=== PATIENT | male | born 1965 | race Caucasian/White ===

== ENCOUNTER 2019-09-28 09:46 | Outpatient (CLI) | payer BC, SELFPAY | END 2019-09-28 09:47 | disposition home or self-care (01) | LOC: ANHBWCAUD 09:47 | PROVIDERS: PCP Family Medicine; Visit Provider Otolaryngology | DX: H90.42 Sensorineural hearing loss, unilateral, left ear, with unrestricted hearing on the contralateral side (principal); H90.11 Conductive hearing loss, unilateral, right ear, with unrestricted hearing on the contralateral side | CPT/HCPCS: 92557; 92567 ==

== ENCOUNTER 2020-03-25 00:59 | Outpatient (CLI) | payer BC, SELFPAY ==
[2020-03-25 18:11] LABS: SARS-CoV-2 RNA PCR Negative
== END 2020-03-25 01:00 | disposition home or self-care (01) ==
LOC: ANHCOVIDDT 00:59
PROVIDERS: PCP Family Medicine; Visit Provider Internal Medicine Gastroenterology
DX: Z01.812 Encounter for preprocedural laboratory examination (principal); Z20.828 Contact with and (suspected) exposure to other viral communicable diseases
CPT/HCPCS: 87635; C9803; U0003

== ENCOUNTER 2020-03-27 03:03 | Day surgery (SDC) | payer BC, SELFPAY ==
[2020-03-20 12:42] VITALS: BMI 29.5
--- NOTE | 2020-03-27 08:22 | WPDANESEPPF ---
Anes - Initial Pre Proc Eval Procedure: Operation Date: 03/27/20 10:30 Proposed Procedures p Screening Colonoscopy - Velasquez Macias MD Date/Time: 03/27/20 08:22 Surgeon: Velasquez Macias MD Pre Op Diagnosis: Hx Of Polyps Patient Data Age: 54 Gender: M Height: 1.75 m Weight: 90.9 kg Allergies Allergy/AdvReac Type Severity Reaction Status Date / Time bupropion Allergy Mild HIVES Verified 03/27/20 10:22 Home Medications Medication Instructions Recorded Confirmed Type aspirin 81 mg tablet,delayed 81 mg PO DAILY #30 tablet 04/21/19 03/21/20 Rx release famotidine 20 mg tablet 20 mg PO DAILY #20 tablet 04/21/19 03/21/20 Rx multivitamin 1 tablet PO DAILY #30 tablet 04/21/19 03/21/20 Rx omega-3 fatty acids 1,000 mg 1,000 mg PO BID #60 cap 04/21/19 03/21/20 Rx capsule carvedilol 25 mg tablet 25 mg PO Q12H #180 tablet 06/05/19 03/21/20 Rx rosuvastatin 40 mg tablet 40 mg PO DAILY #90 tablet 07/26/19 03/21/20 Rx warfarin 3 mg tablet 3 mg PO QTUTHSASU #90 tablet 03/07/20 03/21/20 Rx warfarin 4 mg tablet 4 mg PO QMWF #90 tablet 03/07/20 03/21/20 Rx fenofibrate nanocrystallized 145 145 mg PO DAILY #90 tablet 03/19/20 03/21/20 Rx mg tablet Patient hx anesthesia problems: none Family hx anesthesia problems: none PMFSH Past Medical History Medical History Cardiomyopathy Cholesteatoma Hyperlipidemia Hypertension HETAL on CPAP Pulmonary emboli Right leg DVT Surgical History Surgical History No pertinent past surgical history Family History Family History Father Diabetes mellitus Family history of hypercholesterolemia Hypertension Family history of coronary artery disease Mother Family history of hypercholesterolemia Hypertension Cerebrovascular accident Sibling Family history of hypercholesterolemia Hypertension Social History Social History Smoking packs per day: 0.5 Smoking cigarettes per day: 10.0 Years smoked: 18 Smoking pack-years: 9.00 Smoking status: Former smoker Tobacco type: cigarettes Second hand tobacco smoke exposure: No Alcohol intake: current Drinks per week: 5 Substance use: never Substance use type: does not use Living arrangements: with family Spiritual care concerns: No Anes - Eval Final PreProcedure Day of Procedure 03/27/20 08:22 Patient weight: overweight Heart: regular rate and rhythm Lungs: clear to auscultation and normal air movement Airway: Mallampati scale class II Neurological: alert and oriented Last oral intake: >/= 8 hours ASA classification: III Emergent: no Anesthetic plan: proceed Anesthesia type and monitoring: general GIVS and standard monitoring Informed Consent: The patient's anesthetic plan and its attendant risks and benefits were discussed with the patient/family/POA. Questions were solicited and answers provided to the satisfaction of the patient/family/POA.
--- NOTE | 2020-03-27 10:18 | P.HP_ITS ---
History of Present Illness History of Present Illness Consent: Risks, benefits, and alternatives have been discussed and questions answered. Patient agrees to proceed with procedure. Chief complaint: Hx Of Polyps Narrative: Hunter Hallman is a 54 year old male here for screening colonoscopy [facility] Past Medical History Medical History Cardiomyopathy Cholesteatoma Hyperlipidemia Hypertension HETAL on CPAP Pulmonary emboli Right leg DVT Surgical History Surgical History No pertinent past surgical history Family History Family History Father Diabetes mellitus Family history of hypercholesterolemia Hypertension Family history of coronary artery disease Mother Family history of hypercholesterolemia Hypertension Cerebrovascular accident Sibling Family history of hypercholesterolemia Hypertension Social History Social History Smoking packs per day: 0.5 Smoking cigarettes per day: 10.0 Years smoked: 18 Smoking pack-years: 9.00 Smoking status: Former smoker Tobacco type: cigarettes Second hand tobacco smoke exposure: No Alcohol intake: current Drinks per week: 5 Substance use: never Substance use type: does not use Living arrangements: with family Spiritual care concerns: No Meds Home Medications and Allergies Home Medications Medication Instructions Recorded Confirmed Type aspirin 81 mg tablet,delayed 81 mg PO DAILY #30 tablet 04/21/19 03/21/20 Rx release famotidine 20 mg tablet 20 mg PO DAILY #20 tablet 04/21/19 03/21/20 Rx multivitamin 1 tablet PO DAILY #30 tablet 04/21/19 03/21/20 Rx omega-3 fatty acids 1,000 mg 1,000 mg PO BID #60 cap 04/21/19 03/21/20 Rx capsule carvedilol 25 mg tablet 25 mg PO Q12H #180 tablet 06/05/19 03/21/20 Rx rosuvastatin 40 mg tablet 40 mg PO DAILY #90 tablet 07/26/19 03/21/20 Rx warfarin 3 mg tablet 3 mg PO QTUTHSASU #90 tablet 03/07/20 03/21/20 Rx warfarin 4 mg tablet 4 mg PO QMWF #90 tablet 03/07/20 03/21/20 Rx fenofibrate nanocrystallized 145 145 mg PO DAILY #90 tablet 03/19/20 03/21/20 Rx mg tablet Allergies Allergy/AdvReac Type Severity Reaction Status Date / Time bupropion Allergy Mild HIVES Verified 03/21/20 15:59 Exam Resp: Auscultation: clear to auscultation bilaterally Cardio: Rate: regular rate Rhythm: regular rhythm GI: GI Palp: Yes Soft to palpation and No Tenderness to palpation present (GI) Assessment and Plan Assessment and plan (1) Colon cancer screening: Code(s): Z12.11 - Encounter for screening for malignant neoplasm of colon Status: Acute Assessment and Plan: Colonoscopy with possible biopsy or polypectomy or cautery or injection of substances.
[2020-03-27 10:24] VITALS: BP 133/87; PULSE 70; RESP 16; TEMP 36.2; O2SAT 100; BMI 29.4
[2020-03-27] MEDS: LACTATED RINGERS 1,000 ML 150 ML IV CONT (10:45)
[2020-03-27 11:10] VITALS: BP 110/62; PULSE 67; RESP 20; O2SAT 98
[2020-03-27 11:20] VITALS: BP 120/81; PULSE 71; RESP 26; O2SAT 100
[2020-03-27 11:30] VITALS: BP 123/80; PULSE 66; RESP 19; O2SAT 98
== END 2020-03-27 12:05 | disposition home or self-care (01) ==
PROVIDERS: PCP Family Medicine; Visit Provider Internal Medicine Gastroenterology
PROC: 0DJD8ZZ Inspection of Lower Intestinal Tract, Via Natural or Artificial Opening Endoscopic (ICD-10-PCS; CPT 45378; principal; 2020-03-27 10:30)
DX: Z12.11 Encounter for screening for malignant neoplasm of colon (principal); K63.5 Polyp of colon; I10 Essential (primary) hypertension; E78.5 Hyperlipidemia, unspecified; G47.33 Obstructive sleep apnea (adult) (pediatric); I42.9 Cardiomyopathy, unspecified; Z86.711 Personal history of pulmonary embolism; Z86.718 Personal history of other venous thrombosis and embolism; Z79.01 Long term (current) use of anticoagulants; Z87.891 Personal history of nicotine dependence; Z79.82 Long term (current) use of aspirin
CPT/HCPCS: 45380; 88305; J2704; J7120

== ENCOUNTER 2020-07-19 10:26 | Outpatient (CLI) | payer BC, SELFPAY ==
--- NOTE | 2020-07-19 10:28 | ECG_ITS ---
Measurements Intervals [place] Rate: 72 P: 39 VA: 198 QRS: -19 QRSD: 96 T: 94 QT: 388 QTc: 427 Interpretive Statements SINUS RHYTHM VOLTAGE CRITERIA FOR LVH POOR R WAVE PROGRESSION, ANTERIOR LEADS BORDERLINE T WAVE ABNORMALITY- HIGH LATERAL LEADS BASELINE ARTIFACT- I, II, III, AVR, AVL, AVF BORDERLINE ECG Electronically Signed On 07-19-2020 11:32:21 CUSTOMS IMPORT SPECIALIST by Josesito Rob D.O.
[2020-07-19 11:09] LABS: INR 2.7; Partial Thromboplastin Time 37.1 SECONDS (22.3-36.8); Prothrombin Time 28.8 Seconds (11.1-14.7)
== END 2020-07-19 10:27 | disposition home or self-care (01) ==
PROVIDERS: Anesthesiology; PCP Family Medicine; Visit Provider Orthopaedic Surgery
DX: E78.5 Hyperlipidemia, unspecified (principal); I10 Essential (primary) hypertension; I42.9 Cardiomyopathy, unspecified; Z79.01 Long term (current) use of anticoagulants; Z01.818 Encounter for other preprocedural examination; R94.31 Abnormal electrocardiogram [ECG] [EKG]
CPT/HCPCS: 36415; 85610; 85730; 93005

== ENCOUNTER 2020-07-20 01:18 | Outpatient (CLI) | payer BC, SELFPAY ==
[2020-07-20 18:46] LABS: SARS-CoV-2 RNA PCR Negative
== END 2020-07-20 01:19 | disposition home or self-care (01) ==
LOC: ANHCOVIDDT 01:19
PROVIDERS: PCP Family Medicine; Visit Provider Orthopaedic Surgery
DX: Z01.812 Encounter for preprocedural laboratory examination (principal); Z20.822 Contact with and (suspected) exposure to COVID-19
CPT/HCPCS: C9803; U0003; U0005

== ENCOUNTER 2020-07-23 01:41 | Day surgery (SDC) | payer BC, SELFPAY ==
[2020-07-17 15:25] VITALS: BMI 31.1
--- NOTE | 2020-07-22 14:41 | WPDANESEPPF ---
Anes - Initial Pre Proc Eval Procedure: Operation Date: 07/23/20 11:30 Proposed Procedures p Arthroscopic Subacromial Decompression, Right Shoulder - Ervin Gudino MD Date/Time: 07/22/20 14:41 Surgeon: Ervin Gudino MD Pre Op Diagnosis: Tendinopathy Right Shoulder, Impingement Syndrome Patient Data Age: 54 Gender: M Height: 1.75 m Weight: 95.5 kg Allergies Allergy/AdvReac Type Severity Reaction Status Date / Time bupropion Allergy Mild HIVES Verified 07/23/20 10:38 Home Medications Medication Instructions Recorded Confirmed Type aspirin 81 mg tablet,delayed 81 mg PO DAILY #30 tablet 04/21/19 07/23/20 Rx release famotidine 20 mg tablet 20 mg PO DAILY #20 tablet 04/21/19 07/23/20 Rx multivitamin 1 tablet PO DAILY #30 tablet 04/21/19 07/23/20 Rx omega-3 fatty acids 1,000 mg 1,000 mg PO BID #60 cap 04/21/19 07/23/20 Rx capsule fenofibrate nanocrystallized 145 145 mg PO DAILY #90 tablet 03/19/20 07/23/20 Rx mg tablet carvedilol 25 mg tablet 25 mg PO Q12H #180 tablet 06/03/20 07/23/20 Rx rosuvastatin 40 mg tablet 40 mg PO DAILY #90 tablet 07/16/20 07/23/20 Rx warfarin 3 mg tablet 3 mg PO 3XW #90 tablet 07/16/20 07/23/20 Rx warfarin 4 mg tablet 4 mg PO 4XW #90 tablet 07/16/20 07/23/20 Rx ECG: Date of Service: 07/19/20 Procedure(s): CA 12 lead EKG Accession Number(s): [id number] cc: ~ Measurements Intervals [place] Rate: 72 P: 39 KS: 198 QRS: -19 QRSD: 96 T: 94 QT: 388 QTc: 427 Interpretive Statements SINUS RHYTHM VOLTAGE CRITERIA FOR LVH POOR R WAVE PROGRESSION, ANTERIOR LEADS BORDERLINE T WAVE ABNORMALITY- HIGH LATERAL LEADS BASELINE ARTIFACT- I, II, III, AVR, AVL, AVF BORDERLINE ECG Electronically Signed On 07-19-2020 11:32:21 BAGMAN/WOMAN by Josesito Rob D.O. Dictated By: Josesito Rob DO 07/19/20 1132 Patient hx anesthesia problems: none Family hx anesthesia problems: none PMFSH Past Medical History Medical History Cardiomyopathy (~07/29/07) Cholesteatoma Close exposure to COVID-19 virus Hematuria History of pulmonary embolism Hyperlipidemia Hypertension HETAL on CPAP Pulmonary emboli Right leg DVT Surgical History Surgical History History of carpal tunnel release (~10/30/08) History of ear surgery (~1994) No pertinent past surgical history Family History Family History Father Diabetes mellitus Family history of hypercholesterolemia Hypertension Family history of coronary artery disease Mother Family history of hypercholesterolemia Hypertension Cerebrovascular accident Sibling Family history of hypercholesterolemia Hypertension Social History Social History Smoking packs per day: 0.5 Smoking cigarettes per day: 10.0 Years smoked: 15 Smoking pack-years: 7.50 Smoking status: Current every day smoker Tobacco type: cigarettes Second hand tobacco smoke exposure: No Alcohol intake: current Drinks per week: 5 Substance use: never Substance use type: does not use Living arrangements: with family Spiritual care concerns: No Anes - Eval Final PreProcedure Day of Procedure 07/22/20 14:41 Patient weight: obese Heart: regular rate and rhythm Lungs: clear to auscultation and normal air movement Airway: Mallampati scale class II Neurological: alert and oriented Last oral intake: >/= 8 hours ASA classification: III Emergent: no Anesthetic plan: proceed Anesthesia type and monitoring: general ETT Informed Cons
--- NOTE | 2020-07-22 14:46 | WPDANESPNB ---
Anes - Peripheral Nerve Block Date/Time: 07/22/20 14:46 I have discussed with the patient/family/POA the placement of a peripheral nerve block for post-operative pain management, including associated risks, benefits, complications, and side effects. Alternative methods of post-operative analgesia were detailed. Questions were solicited and answers provided to the satisfaction of the patient/family/POA. Time-Out: A pre-procedural Time-Out was completed immediately before starting the procedure and confirmed: Patient Identification, Site, Procedure, Patient Position and the Availability of Requisite Equipment. Clinical Indications: Acute post-operative pain management requested by the operative surgeon. Nerve Block Insertion Note Anes-nerve block: supraclavicular right Patient position: supine Skin prep: chlorhexidine Needle: 22 gauge, stimulating, insulated echogenic needle. Needle length: 80 mm Technique: ultrasound (in plane) Injectate: bupivacaine 0.5% with epi 5 mcg/ml (20cc) Observations: tolerated well Complications: none Procedure start time:: 1100 Procedure end time:: 1105
[2020-07-23] VITALS (7 sets, daily range): BP systolic 118–133; BP diastolic 71–79; PULSE 55–74; RESP 16–20; TEMP 36.1–36.6; O2SAT 97–100
--- NOTE | 2020-07-23 08:57 | WPDHPUPDATE1 ---
History and Physical Update Update Date/Time: 07/23/20 08:57 History and Physical has been reviewed, including an updated exam of the patient. There are NO changes in the patient's condition. Risks, benefits, and alternatives have been discussed and questions answered. Patient agrees to proceed with procedure.
[2020-07-23] MEDS: ACETAMINOPHEN 500 MG TABLET 1000 MG PO (09:41)
[2020-07-23] MEDS: KETOROLAC 15 MG/ML VIAL (*BKC) IV PUSH (10:13)
[2020-07-23] MEDS: LACTATED RINGERS 1,000 ML 30 ML IV CONT ×2 (10:13→13:03)
[2020-07-23 11:00] LABS: Prothrombin Time 14.2 Seconds (11.1-14.7)
[2020-07-23 11:03] LABS: Partial Thromboplastin Time 24.7 SECONDS (22.3-36.8)
[2020-07-23] MEDS: ceFAZolin 2 GM/D5W 50 ML 2 GM/50 ML BAG IVPB (11:17)
--- NOTE | 2020-07-23 12:56 | PM.PROC ---
Procedure Note - Detailed Date of procedure: 07/23/20 Pre-op diagnosis: Tendinopathy Right Shoulder, Impingement Syndrome Post-op diagnosis: other (1. Impingement syndrome shoulder 2. SLAP tear type 2) Procedure performed: 1. Arthrosocopic biceps tenodesis with labral debridement. 2. Arthroscopic subacromial decompression. Description of procedure: The superior labrum and biceps anchor showed extensive degenerative tearing. The biceps was significantly unstable. There was moderate degenerative tearing of the posterior superior labrum and anterior labrum as well. Glenohumeral articular cartilage was healthy. No other abnormalities noted in the joint or articular side rotator cuff. Bursa sac was inflamed. There was minimal fraying of bursal rotator cuff. Downsloping acromion was treated with acromioplasty. Biceps tenodesis was performed at the intertubercular groove using a single metallic suture anchor and double loaded locking sutures. Implants: 2.8 Piton Tornier anchor. Anesthesia: GETA and regional Surgeon: Ervin Gudino MD Cardiology Physician Assistant: Tayler Trotter PA-C Estimated blood loss (mL): 10 Complications: None Condition: stable Disposition: PACU Findings: Physician bilingual teacher assistant, Tayler Trotter PA-C, required for surgery; including patient positioning, draping, arthroscopic camera operation, maintaining instrument position, suture retrieval, wound closure, and dressing and sling placement. Brief history: The patient complained of persistent pain with overhead and reaching activities. Pain persisted despite physical therapy and cortisone injections. MRI showed mild interstitial tearing of the supraspinatus. Operative details: Patient was given an interscalene block in the holding area. Preoperative antibiotics were given. The patient was brought to the operating room. Careful positioning in the lateral decubitus position was accomplished. The head neck were carefully positioned. An axillary roll was placed. The shoulder was examined. The shoulder was prepped and draped in the usual sterile fashion. Standard posterior and anterior arthroscopic portals were established. The shoulder was inspected. Debridement was performed of the labrum as described above. The biceps was released. Attention was turned to the subacromial space. A complete bursectomy was performed. An accessory lateral portal was created. The acromion was clearly visualized. The coracoacromial ligament was released. Careful acromioplasty was performed utilizing views from both lateral and posterior. Loose bone fragments were carefully irrigated from the joint. The biceps tendon was identified at the intertubercular groove. The undersurface was cleared of soft tissue and cauterized. A rasp was used to roughen the humeral bone. A single metallic anchor was placed at the base of the groove. Double loaded sutures were passed multiple times in a locking loop fashion. The sutures were tied arthroscopically. The repair was quite sadler. The arthroscopic instruments were removed. The wounds were closed with interrupted 3-0 Monocryl suture followed by Steri-Strips. A sterile dressing was applied with a sling. The patient was extubated and brought to the recovery room in stable condition. There were no complications.
== END 2020-07-23 15:00 | disposition home or self-care (01) ==
PROVIDERS: PCP Physician Assistant; Visit Provider Orthopaedic Surgery
PROC: (CPT 29805; principal; 2020-07-23 11:30)
DX: M75.41 Impingement syndrome of right shoulder (principal); M75.81 Other shoulder lesions, right shoulder; G89.18 Other acute postprocedural pain; I42.9 Cardiomyopathy, unspecified; I10 Essential (primary) hypertension; E78.5 Hyperlipidemia, unspecified; G47.33 Obstructive sleep apnea (adult) (pediatric); Z79.01 Long term (current) use of anticoagulants; Z79.82 Long term (current) use of aspirin; Z86.718 Personal history of other venous thrombosis and embolism; Z86.711 Personal history of pulmonary embolism; F17.210 Nicotine dependence, cigarettes, uncomplicated; E66.9 Obesity, unspecified; Z68.31 Body mass index [BMI] 31.0-31.9, adult
CPT/HCPCS: 29823; 29828; 64415; 36415; 85610; 85730; A4565; A9270; C1713; J0690; J1100; J1885; J2001; J2250; J2405; J2704; J3010; J7120

== ENCOUNTER 2020-09-04 16:33 | Outpatient (CLI) | payer BC, SELFPAY | END 2020-09-04 16:34 | disposition home or self-care (01) | LOC: ANHCOVIDVC 16:33 | PROVIDERS: PCP Physician Assistant | DX: Z23 Encounter for immunization (principal) | CPT/HCPCS: 0001A; 91300 ==

== ENCOUNTER 2020-09-25 16:29 | Outpatient (CLI) | payer BC, SELFPAY | END 2020-09-25 16:30 | disposition home or self-care (01) | LOC: ANHCOVIDVC 16:29 | PROVIDERS: PCP Physician Assistant | DX: Z23 Encounter for immunization (principal) | CPT/HCPCS: 0002A; 91300 ==

== ENCOUNTER 2022-10-02 11:05 | Emergency (ER) | payer BC, SELFPAY ==
[2022-10-02 11:10] VITALS: BP 118/72; PULSE 77; RESP 16; TEMP 36.1; O2SAT 98
--- NOTE | 2022-10-02 11:53 | ED.URI ---
HPI - URI/Sore Throat General Chief Complaint: Upper Respiratory Infection Stated Complaint: Chest Congestion/Cough Time Seen by Provider: 10/02/22 11:50 Source: patient, RN notes reviewed and old records reviewed Mode of arrival: ambulatory Limitations: no limitations History of Present Illness HPI Narrative: 57 year old male presents to [facility] care with 5 day history of complaints of sore throat, head and chest congestion some post nasal drainage with expectoration of greenish brown mucous. Patient reports that cough is so bad especially at night that he is unable to rest. Patient reports that he has not felt short of breath with SAO2 98% on room air and no tachypnea noted. Patient states that he has been taking some Mucinex DM for his symptoms. Patient reports no known fevers but has been experiencing some sweats. MD elicited complaint: cough, sore throat and nasal congestion Onset (ago): day(s) (5) Pain scale (0-10): 3 Description of mucous: yellow Able to tolerate fluids by mouth: Yes Treatments prior to arrival: other (Mucinex DM) Related Data Allergies Allergy/AdvReac Type Severity Reaction Status Date / Time bupropion Allergy Mild HIVES Verified 07/29/22 11:53 Review of Systems Review of Systems: CONSTITUTIONAL:Reports malaise, chills, sweats, or fever. EYES: Denies visual changes, redness, or discharge. ENT: Reports rhinorrhea, congestion, sinus pain, no otalgia positive for sore throat. CARDIOVASCULAR: Denies chest pain, palpitations, or edema. RESPIRATORY: Reports cough.? Denies dyspnea. GASTROINTESTINAL: Denies abdominal pain, nausea, vomiting, diarrhea SKIN: Denies rash or itching. MUSCULOSKELETAL: Denies myalgia. NEUROLOGIC: Denies headache. All systems reviewed & are unremarkable except as noted in HPI and below PMFSH Past Medical History Medical History Cardiomyopathy (~07/29/07) Cholesteatoma Close exposure to COVID-19 virus Diabetes Erectile dysfunction Hematuria History of pulmonary embolism Hyperlipidemia Hypertension Libido, decreased Libido, decreased HETAL on CPAP Pulmonary emboli Right leg DVT Smoker Upper respiratory infection with cough and congestion Surgical History Surgical History History of carpal tunnel release (~10/30/08) History of ear surgery (~1994) No pertinent past surgical history Family History Family History Father Diabetes mellitus Family history of hypercholesterolemia Hypertension Family history of coronary artery disease Mother Family history of hypercholesterolemia Hypertension Cerebrovascular accident Sibling Family history of hypercholesterolemia Hypertension Social History Social History Smoking packs per day: 0.5 Smoking cigarettes per day: 10.0 Years smoked: 15 Smoking pack-years: 7.50 Smoking status: Former smoker Tobacco type: cigarettes Second hand tobacco smoke exposure: No Smoking end date: 06/21/22 Alcohol intake: current Drinks per week: 5 Substance use: never Substance use type: does not use Lack of Transportation: No Lack of Food: Never True Current Housing: I Have Housing Concerned About Future Housing: No Difficulty Paying Gas/Electric Bills: No Difficulty Paying for Meds: No Currently Unemployed: No Education: Associate Degree Difficulty w/ Childcare or Family Care: No Living arrangements: with family Gender identity (if verbalized by the patient): Male Sexual Orientation (if Verbalized by the Patient): Straight or Heterosexual Spiritual care concerns: No Agree to blood products: Yes Comments At time of signature, agree with nursing past medical, surgical, social and family history. There is no relevant family history pertinent to the presenting
== END 2022-10-02 12:05 | disposition home or self-care (01) ==
PROVIDERS: Emergency Provider Registered Nurse; PCP Family Medicine
DX: J06.9 Acute upper respiratory infection, unspecified (principal); Z87.891 Personal history of nicotine dependence; E11.9 Type 2 diabetes mellitus without complications; E78.5 Hyperlipidemia, unspecified; I10 Essential (primary) hypertension; G47.33 Obstructive sleep apnea (adult) (pediatric); Z86.711 Personal history of pulmonary embolism; Z86.718 Personal history of other venous thrombosis and embolism
CPT/HCPCS: 87081; 87880; 99213; G0463

== ENCOUNTER 2022-10-23 09:15 | Outpatient (RCR) | payer BC, SELFPAY ==
[2022-08-28 08:20] VITALS: BMI 35.2
[2022-09-25 08:15] VITALS: BMI 33.5; BMI 35.2
== END 2022-11-18 09:01 | disposition home or self-care (01) ==
LOC: ANHDMC 09:15
PROVIDERS: PCP Family Medicine; Visit Provider Family Medicine
DX: E11.9 Type 2 diabetes mellitus without complications (principal); Z71.3 Dietary counseling and surveillance; Z71.89 Other specified counseling
CPT/HCPCS: 97802; 97803; G0108

== ENCOUNTER 2023-05-10 09:32 | Outpatient (CLI) | payer BC, SELFPAY ==
--- NOTE | ~2023-05-10 | XR_ITS ---
EXAMINATION: XR ankle LT min 3V DATE: 05/10/2023 09:45 INDICATION: Left ankle pain. TECHNIQUE: 4 views of left ankle were obtained. COMPARISON: None. FINDINGS: There is an oblique fracture of distal fibula with medial aspect of the fracture line 5 mm distal to the level of the tibial plafond. The distal fracture fragment demonstrates 2 mm posterolate ral displacement. There is mild midfoot osteoarthritis. There are enthesophytes at the posterior and plantar aspects of calcaneal tuberosity. IMPRESSION: 1. Oblique fracture of distal fibula. Reviewed, dictated and finalized at location E. SCAPE CONTRACTOR
== END 2023-05-10 09:33 | disposition home or self-care (01) ==
LOC: ANHBWCIMG 09:35
PROVIDERS: PCP Family Medicine; Visit Provider Physician Assistant
DX: S82.832A Other fracture of upper and lower end of left fibula, initial encounter for closed fracture (principal); X58.XXXA Exposure to other specified factors, initial encounter
CPT/HCPCS: 73610

== ENCOUNTER 2023-06-07 11:28 | Outpatient (CLI) | payer BC, SELFPAY ==
--- NOTE | ~2023-06-07 | XR_ITS ---
Left ankle Technique: AP, oblique, and lateral views were obtained. Clinical History: Pain COMPARISON: 05/10/2023 Findings: There is an oblique, minimally displaced fracture of the lateral malleolus, at and just pro ximal to the level of the ankle mortise, essentially unchanged. Ankle mortise and other visualized shannan int spaces are preserved. Soft tissues are otherwise unremarkable. Impression: Minimal interval healing of oblique, minimally displaced fracture of the lateral malleolus. Reviewed, dictated and finalized at location M. SCAPE MANAGEMENT TECHNICIAN Impression: Minimal interval healing of oblique, minimally displaced fracture of the latera l malleolus.
== END 2023-06-07 11:29 | disposition home or self-care (01) ==
LOC: ANHBWCIMG 11:28
PROVIDERS: PCP Family Medicine; Visit Provider Orthopaedic Surgery
DX: S82.62XD Displaced fracture of lateral malleolus of left fibula, subsequent encounter for closed fracture with routine healing (principal)
CPT/HCPCS: 73610

== ENCOUNTER 2023-07-05 06:33 | Outpatient (CLI) | payer BC, SELFPAY ==
--- NOTE | ~2023-07-05 | XR_ITS ---
Left ankle Technique: AP, oblique, and lateral views were obtained. Clinical History: Fracture COMPARISON: 06/07/2023 Findings: Oblique fracture of the lateral malleolus is essentially unchanged from prior exam, with po ssible minimal interval callus formation.. Ankle mortise and other visualized joint spaces are preser dennis. Soft tissues are otherwise unremarkable. Impression: Probable minimal interval healing of oblique, mildly fracture of the lateral malleolus. Reviewed, dictated and finalized at location M. NCE FORCE MEMBER OTHER RANKS Impression: Probable minimal interval healing of oblique, mildly fracture of the lateral ma lleolus.
== END 2023-07-05 06:34 | disposition home or self-care (01) ==
LOC: ANHBWCIMG 06:34
PROVIDERS: PCP Family Medicine; Visit Provider Orthopaedic Surgery
DX: M25.572 Pain in left ankle and joints of left foot (principal)
CPT/HCPCS: 73610

== ENCOUNTER 2024-06-05 11:52 | Outpatient (CLI) | payer BC, SELFPAY ==
--- NOTE | ~2024-06-05 | XR_ITS ---
Left ankle Technique: AP, oblique, and lateral views were obtained. Clinical History: Pain COMPARISON: 03/14/2024 Findings: Oblique fracture the distal fibula again present, with partial interval healing. Ankle mort ise and other visualized joint spaces are preserved. Soft tissues are otherwise unremarkable. Impression: Partially healed oblique fracture of the distal fibula, essentially stable from prior exam. There is bony bridging across the fracture. Reviewed, dictated and finalized at location M. NCT MATHEMATICS INSTRUCTOR Impression: Partially healed oblique fracture of the distal fibula, essentially stable from prior exam. There is bony bridging across the fracture.
--- NOTE | ~2024-06-05 | XR_ITS ---
Right Knee Technique: AP, lateral, and sunrise views were obtained. Clinical History: Pain Findings: No fracture or dislocation is seen. Osseous alignment is anatomic. Joint spaces are preserv ed without degenerative or erosive change. Soft tissues are unremarkable. No joint effusion is seen. Impression: Unremarkable right knee radiographs. Reviewed, dictated and finalized at location . ONAL ACCOUNT MANAGER Impression: Unremarkable right knee radiographs.
== END 2024-06-05 11:53 | disposition home or self-care (01) ==
LOC: ANHBWCIMG 11:53
PROVIDERS: PCP Family Medicine; Visit Provider Orthopaedic Surgery
DX: S82.432D Displaced oblique fracture of shaft of left fibula, subsequent encounter for closed fracture with routine healing (principal); X58.XXXD Exposure to other specified factors, subsequent encounter; M25.561 Pain in right knee
CPT/HCPCS: 73564; 73610

== ENCOUNTER 2024-07-17 12:43 | Outpatient (CLI) | payer BC, SELFPAY ==
--- NOTE | ~2024-07-17 | XR_ITS ---
EXAMINATION: XR ankle LT min 3V DATE: 07/17/2024 13:08 INDICATION: Left ankle pain. TECHNIQUE: 3 views of left ankle were obtained. COMPARISON: Left ankle radiographs 06/05/2024, 05/10/2023 FINDINGS: There is an oblique fracture of distal fibula with medial aspect of the fracture line 6 mm distal to the level of the tibial plafond. The distal fracture fragment demonstrates 2 mm posterolate ral displacement. Bridging bone is noted. There is mild osteoarthritis of the talonavicular joint. Th ere are enthesophytes at the posterior and plantar aspects of calcaneal tuberosity. Ankle soft tissue swelling is noted. IMPRESSION: 1. Healed fracture deformity of distal fibula. Reviewed, dictated and finalized at location A. STRIAL MAINTENANCE TECH
--- OUTSIDE RECORDS SUMMARY | 2024-07-17 13:14 | XMS_ITS | Referral Summary ---
Author Organization [facility] Medical Office Building B Address [address] [place] [address] Care Team Providers Care Apiculturist Name Role Phone Aruna Gotti MD Primary Care Provider [phone] Encounters Date Type Department Care Team Description 06/28/2024 1:45 PM GEOMORPHOLOGIST Office Visit [facility] Cardiology [address] [place] [address] Kal Ortez MD Nonischemic cardiomyopathy (CMS/HCC) (HCC) (Primary Dx); Essential hypertension; History of DVT (deep vein thrombosis); History of pulmonary embolism; Chronic anticoagulation; Hypertriglyceridemia; HETAL on CPAP 05/16/2024 Telephone [facility] ENT Specialists - [facility] [address] [place] [address] Jacklyn Del Rosario MA from Last 3 Months Allergies Active Allergy Reactions Criticality Noted Date Comments Bupropion Hives Medium Medications carvediloL (COREG) 25 mg tablet TAKE 1 TABLET BY MOUTH EVERY 12 HOURS WITH A MEAL FOOD Active fenofibrate nanocrystallized (TRICOR) 145 mg tablet Take 1 tablet (145 mg total) by mouth daily Active rosuvastatin (CRESTOR) 40 mg tablet Take 1 tablet (40 mg total) by mouth daily Active warfarin (COUMADIN) 3 mg tablet TAKE 1 TABLET BY MOUTH TWICE A WEEK Active famotidine (PEPCID) 20 mg tablet Take 1 tablet (20 mg total) by mouth 2 (two) times a day Active aspirin 81 mg enteric coated tablet Take 1 tablet (81 mg total) by mouth daily Active warfarin (COUMADIN) 4 mg tablet Take 1 tablet (4 mg total) by mouth Active ciprofloxacin (CILOXAN) 0.3 % ophthalmic solutionIndications :Otorrhea of left ear 5 drops into LEFT EAR, NOT EYE, twice daily for 14 days 10 mL 1 024 Active Additional Information Patient not taking.Reported on 06/28/2024 dexAMETHasone (DECADRON) 0.1 % ophthalmic suspensionIndicatio ns:Otorrhea of left ear 5 drops into LEFT EAR, NOT EYE, twice daily for 14 days 10 mL 1 024 Active Additional Information Patient not taking.Reported on 06/28/2024 omega-3 fatty acids (LOVAZA) 1 gram capsule Take 2 capsules (2 g total) by mouth 2 (two) times a day Active Jardiance 10 mg tablet Take 1 tablet by mouth once daily 90 tablet 025 Active losartan (COZAAR) 25 mg tablet Take 1 tablet by mouth once daily 90 tablet 025 Active Wegovy 2.4 mg/0.75 mL auto-injector Inject 0.75 mL (2.4 mg total) under the skin every 7 days 024 Active losartan (COZAAR) 25 mg tablet Take 1 tablet by mouth once daily 90 tablet 2 024 2024 Discontinued empagliflozin (Jardiance) 10 mg tablet Take 1 tablet by mouth once daily 90 tablet 1 024 2024 Discontinued Wegovy 0.25 mg/0.5 mL auto-injector Inject 0.5 mL (0.25 mg total) under the skin every 7 days 024 2024 Discontinued(A lternate therapy) Active Problems Problem Noted Date Diagnosed Date Otorrhea of left ear 07/15/2023 Assessment & Plan (10/18/2023 2:01 PM CDT): Avoid ear cleaning techniques Avoid water to ears Follow up in 6 months for ear and mastoid check Assessment & Plan (07/15/2023 3:08 PM GEOMORPHOLOGIST): Ciprofloxacin and Dexamethasone 5 drops into LEFT EAR, NOT EYE, twice daily for 14 days Avoid ear cleaning techniques Avoid water to ears Follow up to recheck Left ear in 6 weeks THROW AWAY Q-TIPS How to Use Ear Drops discussed and Handout provided Hearing loss of right ear 08/19/2020 Assessment & Plan (08/22/2021 1:06 PM GEOMORPHOLOGIST): Avoid ear cleaning techniques Avoid water to ears Follow up in 6 months to recheck Right mastoid bowl, earlier with ear drainage Assessment & Plan (02/21/2021 12:17 PM CDT): Avoid ear cleaning techniques Avoid water to ears Follow up in 6 months to recheck Right mastoid bowl, earlier with any ear drainage Assessment & Plan (08/19/2020 9:49 AM GEOMORPHOLOGIST): Avoid ear cleaning techniques Avoid water to ears Recommend using head set hearing protection rather than ear plugs to prevent ear canal irritation Follow up in 6 months for right mastoid bowl check Allergic rhinitis 08/19/2020 Assessment & Plan (08/19/2020 9:51 AM GEOMORPHOLOGIST): Nasal saline spray (Simply saline, Little Remedies, [place], [place]) 2 second sprays or 2 squeezes into each nostril while looking down over the sink, do not need to sniff in followed by Flonase 2 sprays into each nostril while looking down over the sink, do not sniff in or blow nose after use for at least 30 minutes H/O mastoidectomy 02/02/2020 Assessment & Plan (08/22/2021 1:06 PM GEOMORPHOLOGIST): Avoid ear cleaning techniques Avoid water to ears Follow up in 6 months to recheck Right mastoid bowl, earlier with ear drainage Assessment & Plan (02/21/2021 12:17 PM CDT): Avoid ear cleaning techniques Avoid water to ears Follow up in 6 months to recheck Right mastoid bowl, earlier with any ear drainage Assessment & Plan (08/19/2020 9:49 AM GEOMORPHOLOGIST): Avoid ear cleaning techniques Avoid water to ears Recommend using head set hearing protection rather than ear plugs to prevent ear canal irritation Follow up in 6 months for right mastoid bowl check Assessment & Plan (02/02/2020 1:03 PM CDT): Ciprofloxacin 10 drops into the right ear twice daily for 14 days Follow up in 2 weeks Otorrhea of right ear 02/02/2020 Assessment & Plan (03/31/2024 8:27 AM CDT): Ciprofloxacin 7-10 drops into the Right ear twice daily for 7 days Follow up in 6 months for Mastoid bowl check Avoid ear cleaning techniques Avoid water to ears Assessment & Plan (10/18/2023 2:01 PM CDT): Avoid ear cleaning techniques Avoid water to ears Follow up in 6 months for ear and mastoid check Assessment & Plan (08/19/2020 9:51 AM GEOMORPHOLOGIST): Avoid ear cleaning techniques Avoid water to ears Recommend using head set hearing protection rather than ear plugs to prevent ear canal irritation Follow up in 6 months for right mastoid bowl check Assessment & Plan (02/16/2020 9:10 AM CDT): Improving Finish current bottle of ear drops, only leave in cotton ball for 10 minutes at the most to prevent fungal infection Follow up in 6 months, earlier if Right ear gets plugged up Assessment & Plan (02/02/2020 1:03 PM CDT): Ciprofloxacin 10 drops into the right ear twice daily for 14 days Follow up in 2 weeks How to Use Ear Drops discussed and Handout provided Pulmonary embolism 09/19/2012 Overview (09/24/2016): Pulmonary emboli Primary cardiomyopathy 09/19/2012 Overview (09/24/2016): PRIM CARDIOMYOPATHY NEC 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 Denies 10/15/2022 Sex and Gender Information Value Date Recorded Sex Assigned at Not on file Legal Sex Male 1:59 AM GEOMORPHOLOGIST Gender Identity Male 02/18/2021 9:59 AM CDT Sexual Orientation Straight 02/18/2021 9: 59 AM CDT Last Filed Vital Signs Vital Sign Reading Time Taken Comments Blood Pressure 108/64 06/28/2024 1:43 PM GEOMORPHOLOGIST Pulse 81 06/28/2024 1:43 PM GEOMORPHOLOGIST Temperature 36.2 ??C (97.1 ??F) 07/15/2023 2:39 PM CS T Respiratory Rate 18 10/18/2023 1:42 PM CDT Oxygen Saturation 95% 06/28/2024 1:43 PM GEOMORPHOLOGIST Inhaled Oxygen Concentration - - Weight 100.2 kg (221 lb) 06/28/2024 1:43 PM GEOMORPHOLOGIST Height 175.3 cm (5' 9 ) 06/28/2024 1:43 PM GEOMORPHOLOGIST Body Mass Index 32.64 06/28/2024 1:43 PM GEOMORPHOLOGIST Plan of Treatment Not on file Medical Devices Implanted Type Area Command And Control Specialist Device Identifier Shelf Expiration Date Model / Serial / Lot [employer] Device 10ml 5fr Closure Mynx Control 2 Mode Balloon Catheter [id number] - [id number] Implanted:Qty: 1 on 10/15/2022 by Kal Ortez MD at [facility] [employer] 05/20/2024 [id number] / / [id number] Insurance BS FEDERAL [facility] FEDERAL Care Teams Apiculturist Relationship Specialty Start Date End Date Aruna Gotti MD PCP - General Family Medicine 10/01/20
--- OUTSIDE RECORDS SUMMARY | 2024-07-17 13:14 | XMS_ITS | Clinical Summary ---
Author Organization [facility] Medical Office Building B Address [address] [place] [address] Care Team Providers Care Credit Administration Officer Name Role Phone Aruna Gotti MD Primary Care Provider [phone] Allergies Active Allergy Reactions Criticality Noted Date [...] check Assessment & Plan (07/15/2023 3:08 PM SOCIAL WORK INSTRUCTOR): Ciprofloxacin and Dexamethasone 5 drops into LEFT EAR, NOT EYE, twice daily for 14 days Avoid ear cleaning techniques Avoid water to ears Follow up to recheck Left ear in 6 weeks THROW AWAY Q-TIPS How to Use Ear Drops discussed and Handout provided Hearing loss of right ear 08/19/2020 Assessment & Plan (08/22/2021 1:06 PM SOCIAL WORK INSTRUCTOR): Avoid ear cleaning techniques Avoid water to ears Follow up in 6 months to recheck Right mastoid bowl, earlier with ear drainage Assessment & Plan (02/21/2021 12:17 PM CDT): Avoid ear cleaning techniques Avoid water to ears Follow up in 6 months to recheck Right mastoid bowl, earlier with any ear drainage Assessment & Plan (08/19/2020 9:49 AM SOCIAL WORK INSTRUCTOR): Avoid ear cleaning techniques Avoid water to ears Recommend using head set hearing protection rather than ear plugs to prevent ear canal irritation Follow up in 6 months for right mastoid bowl check Allergic rhinitis 08/19/2020 Assessment & Plan (08/19/2020 9:51 AM SOCIAL WORK INSTRUCTOR): Nasal saline spray (Simply saline, Little Remedies, [place], [place]) 2 second sprays or 2 squeezes into each nostril while looking down over the sink, do not need to sniff in followed by Flonase 2 sprays into each nostril while looking down over the sink, do not sniff in or blow nose after use for at least 30 minutes H/O mastoidectomy 02/02/2020 Assessment & Plan (08/22/2021 1:06 PM SOCIAL WORK INSTRUCTOR): Avoid ear cleaning techniques Avoid water to ears Follow up in 6 months to recheck Right mastoid bowl, earlier with ear drainage Assessment & Plan (02/21/2021 12:17 PM CDT): Avoid ear cleaning techniques Avoid water to ears Follow up in 6 months to recheck Right mastoid bowl, earlier with any ear drainage Assessment & Plan (08/19/2020 9:49 AM SOCIAL WORK INSTRUCTOR): Avoid ear cleaning techniques Avoid water to [...] check Assessment & Plan (08/19/2020 9:51 AM SOCIAL WORK INSTRUCTOR): Avoid ear cleaning techniques Avoid water to [...] 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 Overview (09/24/2016): MIXED HYPERLIPIDEMIA Encounters Date Type Department Care Team Description 06/28/2024 1:45 PM SOCIAL WORK INSTRUCTOR Office Visit [facility] Cardiology [address] [place] [address] Kal Ortez MD Nonischemic cardiomyopathy (CMS/HCC) (HCC) (Primary Dx); Essential hypertension; History of DVT (deep vein thrombosis); History of pulmonary embolism; Chronic anticoagulation; Hypertriglyceridemia; HETAL on CPAP 05/16/2024 Telephone [facility] ENT Specialists - [facility] [address] [place] [address] Jacklyn Del Rosario MA from Last 3 Months Surgical History Surgery Date Site/Laterality Comments OTHER SURGICAL HISTORY cholesteatoma. Dr cristina barron CARPAL TUNNEL RELEASE Surgery for Carpal Tunnel EAR SURGERY Medical History Medical History Date Comments Hx Other Medical 2008 Pulmonary Embol us Sleep apnea Sleep Apnea Cardiomyopathy (HCC) Hyperlipidemia Hypertension Family History Medical History Relation Name Comments Coronary artery disease Father Susanne nary artery disease; Diabetes Father Hypertension Father Coronary artery disease Mother Susanne nary artery disease; Hypertension Mother Relation Name Status Comments Father (Age 81) Mother (Age 80) Social History Tobacco Use Types Packs/Day Years [...] on file Legal Sex Male 1:59 AM SOCIAL WORK INSTRUCTOR Gender Identity Male 02/18/2021 9:59 AM CDT Sexual Orientation Straight 02/18/2021 9: 59 AM CDT Obstetrics History Last Filed Vital Signs Vital Sign Reading Time Taken Comments Blood Pressure 108/64 06/28/2024 1:43 PM SOCIAL WORK INSTRUCTOR Pulse 81 06/28/2024 1:43 PM SOCIAL WORK INSTRUCTOR Temperature 36.2 ??C (97.1 ??F) 07/15/2023 2:39 PM CS T Respiratory Rate 18 10/18/2023 1:42 PM CDT Oxygen Saturation 95% 06/28/2024 1:43 PM SOCIAL WORK INSTRUCTOR Inhaled Oxygen Concentration - - Weight 100.2 kg (221 lb) 06/28/2024 1:43 PM SOCIAL WORK INSTRUCTOR Height 175.3 cm (5' 9 ) 06/28/2024 1:43 PM SOCIAL WORK INSTRUCTOR Body Mass Index 32.64 06/28/2024 1:43 PM SOCIAL WORK INSTRUCTOR Plan of Treatment Health Maintenance Due Date Last Done Comments Colon Cancer Screening-Colonoscopy 1965 Depression Screening 1963 Hepatitis C Screening 1963 Prostate Cancer Screening-PSA 1963 DTaP/Tdap/Td Vaccine (1 - Tdap) 09/30/1974 Hepatitis B Screening 09/30/1981 Regular Well Visit/Exam 18-64 09/30/1981 Zoster Vaccine (1 of 2) 09/30/2013 Pneumococcal vaccine <65 (2 of 2 - PPSV23 or PCV20) 05/26/2019 03/31/2019 Influenza Vaccine (#1) 2024 04/04/2019, 2017 Medical Devices Implanted Type Area Moving Picture Producer Device Identifier Shelf Expiration Date Model / Serial / Lot [employer] Device 10ml 5fr Closure Mynx Control 2 Mode Balloon Catheter [id number] - [id number] Implanted:Qty: 1 on 10/15/2022 by Kal Ortez MD at [facility] [employer] 05/20/2024 [id number] / / [id number] Insurance [facility] FEDERAL Member Subscriber Plan / Payer (Ef fective 2018-Present) Name:Hunter Hallman Relation to Subscriber:Self Name:Hunter Hallman Payer ID:[id number] (NAIC) Group ID:[id number] Type:[employer] Address: [address] [place] [address] [facility] FEDERAL Member Subscriber Plan / Payer (Ef fective 2018-Present) Name:Hunter Hallman Relation to Subscriber:Self Name:Hunter Hallman Payer ID:[id number] (NAIC) Group ID:[id number] Type:[employer] Address: [id number] [place] [address] Care Teams Credit Administration Officer Relationship Specialty Start Date End Date Aruna Gotti MD PCP - General Family Medicine 10/01/20
--- OUTSIDE RECORDS SUMMARY | 2024-07-17 13:14 | XMS_ITS | CONTINUITY OF CARE DOCUMENT ---
Author Name liz hill Address Unknown Organization [facility] Address [address] [place] [address] [address] [place] [address] Phone [phone] Care Team Providers Care Superintendent Plant Name Role Phone liz hill Unavailable Unavailable INSURANCE PROVIDERS Payer name Policy type / Coverage type [place] red democrat ID FEDERAL OFFICE OF WORK COMP Workers' compensatio n health claim [id number]
== END 2024-07-17 12:44 | disposition home or self-care (01) ==
LOC: ANHBWCIMG 12:45
PROVIDERS: PCP Family Medicine; Visit Provider Orthopaedic Surgery
DX: M21.862 Other specified acquired deformities of left lower leg (principal)
CPT/HCPCS: 73610

== ENCOUNTER 2024-08-14 12:12 | Outpatient (CLI) | payer BC, SELFPAY ==
--- NOTE | ~2024-08-14 | XR_ITS ---
EXAM: XR ankle LT min 3V DATE: 08/14/2024 12:23 HISTORY: S82.832K - Other fracture of upper and lower end of left ... . COMPARISON: 07/17/2024. FINDINGS: Normal mineralization. Distal left fibular fracture, healed in mild deformity. No new acut e fracture or dislocation. No lytic or blastic lesion. Mild scattered degenerative changes. Plantar a nd Achilles enthesopathy. No erosion or periosteal change. Soft tissues within normal limits. IMPRESSION: Distal left fibular fracture, healed in mild deformity. Reviewed, dictated and finalized at location K. TMENT PLANT OPERATOR
--- OUTSIDE RECORDS SUMMARY | 2024-08-14 13:53 | XMS_ITS | Referral Summary ---
Author Organization [facility] Medical Office Building B Address [address] [place] [address] Care Team Providers Care Holistic Specialist Name Role Phone Aruna Gotti MD Primary Care Provider [phone] Encounters Date Type Department Care Team Description 06/28/2024 1:45 PM SINK MAKER Office Visit [facility] Cardiology [address] [place] [address] Kal Ortez MD Nonischemic cardiomyopathy (CMS/HCC) (HCC) (Primary Dx); Essential hypertension; History of DVT (deep vein thrombosis); History of pulmonary embolism; Chronic anticoagulation; Hypertriglyceridemia; HETAL on CPAP 05/16/2024 Telephone [facility] Specialists - [facility] [address] [place] [address] Jacklyn Del Rosario MA from Last 3 Months Allergies Active Allergy Reactions Criticality Noted Date Comments Bupropion Hives Medium Medications carvediloL (COREG) 25 mg tablet TAKE 1 TABLET BY MOUTH EVERY 12 HOURS WITH A MEAL FOOD 11/29/19 20 Active fenofibrate nanocrystallized (TRICOR) 145 mg tablet Take 1 tablet (145 mg total) by mouth daily 11/16/19 20 Active rosuvastatin (CRESTOR) 40 mg tablet Take 1 tablet (40 mg total) by mouth daily 01/16/20 20 Active warfarin (COUMADIN) 3 mg tablet TAKE 1 TABLET BY MOUTH TWICE A WEEK 12/28/19 20 Active famotidine (PEPCID) 20 mg tablet Take 1 tablet (20 mg total) by mouth 2 (two) times a day Active aspirin 81 mg enteric coated tablet Take 1 tablet (81 mg total) by mouth daily Active warfarin (COUMADIN) 4 mg tablet Take 1 tablet (4 mg total) by mouth Active ciprofloxacin (CILOXAN) 0.3 % ophthalmic solutionIndications: Otorrhea of left ear 5 drops into LEFT EAR, NOT EYE, twice daily for 14 days 10 mL 1 07/15/19 24 Active Additional Information Patient not taking.Reported on 06/28/2024 dexAMETHasone (DECADRON) 0.1 % ophthalmic suspensionIndication s:Otorrhea of left ear 5 drops into LEFT EAR, NOT EYE, twice daily for 14 days 10 mL 1 07/15/19 24 Active Additional Information Patient not taking.Reported on 06/28/2024 omega-3 fatty acids (LOVAZA) 1 gram capsule Take 2 capsules (2 g total) by mouth 2 (two) times a day 10/07/19 24 Active Jardiance 10 mg tablet Take 1 tablet by mouth once daily 90 tablet 06/22/19 25 Active losartan (COZAAR) 25 mg tablet Take 1 tablet by mouth once daily 90 tablet 06/27/19 25 Active Wegovy 2.4 mg/0.75 mL auto-injector Inject 0.75 mL (2.4 mg total) under the skin every 7 days 06/08/20 24 Active Active Problems Problem Noted Date Diagnosed Date Otorrhea of left ear 07/15/2023 Assessment & Plan (10/18/2023 2:01 PM CDT): Avoid ear cleaning techniques Avoid water to ears Follow up in 6 months for ear and mastoid check Assessment & Plan (07/15/2023 3:08 PM SINK MAKER): Ciprofloxacin and Dexamethasone 5 drops into LEFT EAR, NOT EYE, twice daily for 14 days Avoid ear cleaning techniques Avoid water to ears Follow up to recheck Left ear in 6 weeks THROW AWAY Q-TIPS How to Use Ear Drops discussed and Handout provided Hearing loss of right ear 08/19/2020 Assessment & Plan (08/22/2021 1:06 PM SINK MAKER): Avoid ear cleaning techniques Avoid water to ears Follow up in 6 months to recheck Right mastoid bowl, earlier with ear drainage Assessment & Plan (02/21/2021 12:17 PM CDT): Avoid ear cleaning techniques Avoid water to ears Follow up in 6 months to recheck Right mastoid bowl, earlier with any ear drainage Assessment & Plan (08/19/2020 9:49 AM SINK MAKER): Avoid ear cleaning techniques Avoid water to ears Recommend using head set hearing protection rather than ear plugs to prevent ear canal irritation Follow up in 6 months for right mastoid bowl check Allergic rhinitis 08/19/2020 Assessment & Plan (08/19/2020 9:51 AM SINK MAKER): Nasal saline spray (Simply saline, Little Remedies, [place], [place]) 2 second sprays or 2 squeezes into each nostril while looking down over the sink, do not need to sniff in followed by Flonase 2 sprays into each nostril while looking down over the sink, do not sniff in or blow nose after use for at least 30 minutes H/O mastoidectomy 02/02/2020 Assessment & Plan (08/22/2021 1:06 PM SINK MAKER): Avoid ear cleaning techniques Avoid water to ears Follow up in 6 months to recheck Right mastoid bowl, earlier with ear drainage Assessment & Plan (02/21/2021 12:17 PM CDT): Avoid ear cleaning techniques Avoid water to ears Follow up in 6 months to recheck Right mastoid bowl, earlier with any ear drainage Assessment & Plan (08/19/2020 9:49 AM SINK MAKER): Avoid ear cleaning techniques Avoid water to [...] check Assessment & Plan (08/19/2020 9:51 AM SINK MAKER): Avoid ear cleaning techniques Avoid water to [...] on file Legal Sex Male 1:59 AM SINK MAKER Gender Identity Male 02/18/2021 9:59 AM CDT Sexual Orientation Straight 02/18/2021 9: 59 AM CDT Last Filed Vital Signs Vital Sign Reading Time Taken Comments Blood Pressure 108/64 06/28/2024 1:43 PM SINK MAKER Pulse 81 06/28/2024 1:43 PM SINK MAKER Temperature 36.2 C (97.1 F) 07/15/2023 2:39 PM SINK MAKER Respiratory Rate 18 10/18/2023 1:42 PM CDT Oxygen Saturation 95% 06/28/2024 1:43 PM SINK MAKER Inhaled Oxygen Concentration - - Weight 100.2 kg (221 lb) 06/28/2024 1:43 PM SINK MAKER Height 175.3 cm (5' 9 ) 06/28/2024 1:43 PM SINK MAKER Body Mass Index 32.64 06/28/2024 1:43 PM SINK MAKER Plan of Treatment Not on file Medical Devices Implanted Type Area Director Media Device Identifier Shelf Expiration Date Model / Serial / Lot [employer] Device 10ml 5fr Closure Mynx Control 2 Mode Balloon Catheter [id number] - [id number] Implanted:Qty: 1 on 10/15/2022 by Kal Ortez MD at [facility] [employer] 05/20/2024 [id number] / / [id number] Insurance [facility] FEDERAL [facility] FEDERAL Care Teams Holistic Specialist Relationship Specialty Start Date End Date Aruna Gotti MD PCP - General Family Medicine 10/01/20
--- OUTSIDE RECORDS SUMMARY | 2024-08-14 13:53 | XMS_ITS | Encounter Summary ---
Author Organization [facility] Address [address] [place] [address] Care Team Providers Care Blockers Skiver Name Role Phone Saar Eng MD Primary Care Provider [phone] Encounter Details Date Type Department Care Team (Latest Contact Info) Description 07/20/2006 Outpatient Historical [facility] Kvng Lehman MD NO ADDRESS ON FILE Unspecified Cholesteatoma (Primary Dx) Social History Tobacco Use Types Packs/Day Years Used Date Smoking Tobacco: Never Assessed Sex and Gender Information Value Date Recorded Sex Assigned at Not on file Legal Sex Male 5:17 AM MARKETING TRAFFIC COORDINATOR Gender Identity Not on file Sexual Orientation Not on file documented as of this encounter Plan of Treatment Not on file documented as of this encounter Visit Diagnoses Diagnosis Cholesteatoma, unspecified- Primary documented in this encounter Care Teams Blockers Skiver Relationship Specialty Start Date End Date Sara Eng MD [address] [place] [address] PCP - General 06/07/15 documented as of this encounter
--- OUTSIDE RECORDS SUMMARY | 2024-08-14 13:53 | XMS_ITS | Clinical Summary ---
Author Organization [facility] Address [address] [facility] Attn: Epic Prelude ADT [place] [address] Care Team Providers Care River Boat Captain Name Role Phone Sara Eng MD Primary Care Provider [phone] Social History Tobacco Use Types Packs/Day Years Used Date Smoking Tobacco: Never Assessed Sex and Gender Information Value Date Recorded Sex Assigned at Not on file Legal Sex Male 5:17 AM FIRE EQUIPMENT INSPECTOR HELPER Gender Identity Not on file Sexual Orientation Not on file Plan of Treatment Health Maintenance Due Date Last Done Comments DTAP/TDAP/TD VACCINES (1 - Tdap) 09/30/1982 COLORECTAL SCREENING 09/30/2008 Colorectal Cancer Screening 09/30/2008 FIT-DNA Q 3 years 09/30/2008 FIT/FOBT Q 1 year 09/30/2008 Flex Sig/CT Colonography Q 5 years 09/30/2008 ZOSTER VACCINE (1 of 2) 09/30/2013 INFLUENZA VACCINE (#1) 2024 RSV VACCINE (60+ or ) (1 - 1-dose 75+ series) 09/30/2038 HEPATITIS B VACCINES Aged Out No long er eligible based on patient's age to complete this topic Care Teams River Boat Captain Relationship Specialty Start Date End Date Sara Eng MD [address] [place] [id number] PCP - General 06/07/15
--- OUTSIDE RECORDS SUMMARY | 2024-08-14 13:53 | XMS_ITS | Clinical Summary ---
Author Organization [facility] Medical Office Building [facility] Address [address] [place] [address] Care Team Providers Care Encephalographer Name Role Phone Aruna Gotti MD Primary Care Provider [phone] Allergies Active Allergy Reactions Criticality Noted Date [...] check Assessment & Plan (07/15/2023 3:08 PM HAND OUTSIDE CUTTER): Ciprofloxacin and Dexamethasone 5 drops into LEFT EAR, NOT EYE, twice daily for 14 days Avoid ear cleaning techniques Avoid water to ears Follow up to recheck Left ear in 6 weeks THROW AWAY Q-TIPS How to Use Ear Drops discussed and Handout provided Hearing loss of right ear 08/19/2020 Assessment & Plan (08/22/2021 1:06 PM HAND OUTSIDE CUTTER): Avoid ear cleaning techniques Avoid water to ears Follow up in 6 months to recheck Right mastoid bowl, earlier with ear drainage Assessment & Plan (02/21/2021 12:17 PM CDT): Avoid ear cleaning techniques Avoid water to ears Follow up in 6 months to recheck Right mastoid bowl, earlier with any ear drainage Assessment & Plan (08/19/2020 9:49 AM HAND OUTSIDE CUTTER): Avoid ear cleaning techniques Avoid water to ears Recommend using head set hearing protection rather than ear plugs to prevent ear canal irritation Follow up in 6 months for right mastoid bowl check Allergic rhinitis 08/19/2020 Assessment & Plan (08/19/2020 9:51 AM HAND OUTSIDE CUTTER): Nasal saline spray (Simply saline, Little Remedies, [place], Hunters) 2 second sprays or 2 squeezes into each nostril while looking down over the sink, do not need to sniff in followed by Flonase 2 sprays into each nostril while looking down over the sink, do not sniff in or blow nose after use for at least 30 minutes H/O mastoidectomy 02/02/2020 Assessment & Plan (08/22/2021 1:06 PM HAND OUTSIDE CUTTER): Avoid ear cleaning techniques Avoid water to ears Follow up in 6 months to recheck Right mastoid bowl, earlier with ear drainage Assessment & Plan (02/21/2021 12:17 PM CDT): Avoid ear cleaning techniques Avoid water to ears Follow up in 6 months to recheck Right mastoid bowl, earlier with any ear drainage Assessment & Plan (08/19/2020 9:49 AM HAND OUTSIDE CUTTER): Avoid ear cleaning techniques Avoid water to [...] check Assessment & Plan (08/19/2020 9:51 AM HAND OUTSIDE CUTTER): Avoid ear cleaning techniques Avoid water to [...] Department Care Team Description 06/28/2024 1:45 PM HAND OUTSIDE CUTTER Office Visit [facility] [address] [place] [address] Kal Ortez MD Nonischemic cardiomyopathy (CMS/HCC) (HCC) (Primary Dx); Essential hypertension; History of DVT (deep vein thrombosis); History of pulmonary embolism; Chronic anticoagulation; Hypertriglyceridemia; HETAL on CPAP 05/16/2024 Telephone [facility] - [address] [place] [address] Jacklyn Del Rosario MA from [...] on file Legal Sex Male 1:59 AM HAND OUTSIDE CUTTER Gender Identity Male 02/18/2021 9:59 AM CDT Sexual Orientation Straight 02/18/2021 9: 59 AM CDT Obstetrics History Last Filed Vital Signs Vital Sign Reading Time Taken Comments Blood Pressure 108/64 06/28/2024 1:43 PM HAND OUTSIDE CUTTER Pulse 81 06/28/2024 1:43 PM HAND OUTSIDE CUTTER Temperature 36.2 C (97.1 F) 07/15/2023 2:39 PM HAND OUTSIDE CUTTER Respiratory Rate 18 10/18/2023 1:42 PM CDT Oxygen Saturation 95% 06/28/2024 1:43 PM HAND OUTSIDE CUTTER Inhaled Oxygen Concentration - - Weight 100.2 kg (221 lb) 06/28/2024 1:43 PM HAND OUTSIDE CUTTER Height 175.3 cm (5' 9 ) 06/28/2024 1:43 PM HAND OUTSIDE CUTTER Body Mass Index 32.64 06/28/2024 1:43 PM HAND OUTSIDE CUTTER Plan of Treatment Health Maintenance Due Date Last Done Comments Colon Cancer Screening-Colonoscopy 1963 Depression Screening 1963 Hepatitis C Screening 1963 Prostate Cancer Screening-PSA 1963 DTaP/Tdap/Td Vaccine (1 - Tdap) 09/30/1974 Hepatitis B Screening 09/30/1981 Regular Well Visit/Exam 18-64 09/30/1981 Zoster Vaccine (1 of 2) 09/30/2013 Pneumococcal vaccine <65 (2 of 2 - PPSV23) 05/26/2019 03/31/2019 Influenza Vaccine (#1) 2024 04/04/2019, 2017 Medical Devices Implanted Type Area Rod Cup Filler Device Identifier Shelf Expiration Date Model / Serial / Lot [employer] Device 10ml 5fr Closure Mynx Control 2 Mode Balloon Catheter [id number] - [id number] Implanted:Qty: 1 on 10/15/2022 by Kal Ortez MD at [facility] [employer] 05/20/2024 [id number] / / [id number] Insurance Care Teams Encephalographer Relationship Specialty Start Date End Date Aruna Gotti MD PCP - General Family Medicine 10/01/20
--- OUTSIDE RECORDS SUMMARY | 2024-08-14 13:53 | XMS_ITS | CONTINUITY OF CARE DOCUMENT ---
Author Name liz hill Address Unknown Organization [facility] Address [address] [place] [address] [address] [place] [address] Phone [phone] Care Team Providers Care Research Chef Name Role Phone liz hill Unavailable Unavailable INSURANCE PROVIDERS Payer name Policy type / Coverage type [place] red republican ID [employer] OF WORK COMP Workers' compensatio n health claim [id number]
== END 2024-08-14 12:13 | disposition home or self-care (01) ==
LOC: ANHBWCLAB 12:14 → ANHBWCIMG 12:36
PROVIDERS: PCP Family Medicine; Visit Provider Orthopaedic Surgery
DX: S82.832K Other fracture of upper and lower end of left fibula, subsequent encounter for closed fracture with nonunion (principal); X58.XXXS Exposure to other specified factors, sequela
CPT/HCPCS: 73610